=== PATIENT | female | born 1985 | race African-American/Black ===

== ENCOUNTER 2018-02-28 08:00 | Day surgery (SDC) | payer OTHER ==
[~2018-02-28] VITALS: Ht 167.6 cm; Wt 113.4 kg
[2018-02-28] MEDS ORDERED: CEFAZOLIN SODIUM 1 GM/D5W PM 50 ML IV SCH (08:25)
[2018-02-28] MEDS ORDERED: BUPIVACAINE-MPF/EPI 0.25% 30 ML VIAL INJ ONE (09:53)
[2018-02-28] MEDS ORDERED: MIDAZOLAM 2 MG/2 ML VIAL ONE (10:18)
[2018-02-28] MEDS ORDERED: KETAMINE 500 MG/5 ML VIAL ONE (10:18)
[2018-02-28] MEDS ORDERED: HYDROmorphone 1 MG/ML AMP IVP PRN ×2 (10:30→11:35)
[2018-02-28] MEDS ORDERED: ONDANSETRON 4 MG/2 ML VIAL IVP PRN (10:30)
[2018-02-28] MEDS ORDERED: NACL 0.9% 1,000 ML IV SCH (11:33)
[2018-02-28] MEDS ORDERED: MORPHINE SULFATE 4 MG/ML SYR IV PRN (11:35)
[2018-02-28] MEDS ORDERED: MORPHINE SULFATE 2 MG/ML SYR IVP PRN (11:35)
[2018-02-28] MEDS ORDERED: ONDANSETRON 4 MG/2 ML VIAL IV PRN (11:35)
[2018-02-28] MEDS ORDERED: HYDROcodone/APAP 5/325 MG 1 TAB TAB PO PRN (11:35)
[2018-02-28] MEDS ORDERED: ONDANSETRON 4 MG/2 ML VIAL ONE (12:13)
== END 2018-02-28 13:28 | disposition home or self-care (01) ==
LOC: MMU 08:00 → MDS 08:00
PROVIDERS: ATTEND Surgery
DX: D17.0 Benign lipomatous neoplasm of skin and subcutaneous tissue of head, face and neck (principal); E66.01 Morbid (severe) obesity due to excess calories; Z68.41 Body mass index [BMI] 40.0-44.9, adult; Z98.890 Other specified postprocedural states
CPT/HCPCS: 21552; 71045; 88304; J0690; J2250; J2405; J3490; J7120